=== PATIENT | male | born 1945 | race Caucasian/White ===

== ENCOUNTER → 2019-09-26 | Outpatient (CLI) | payer OTHER ==
--- NOTE | 2019-09-26 12:28 | Diagnostic Imaging Report ---
PROCEDURE: CT abdomen and pelvis without contrast. TECHNIQUE: Multiple contiguous axial images were obtained through the abdomen and pelvis without the use of intravenous contrast. Auto Exposure Controls were utilized during the CT exam to meet ALARA standards for radiation dose reduction. INDICATION: Follow-up status post previous IVC filter placement. COMPARISON: None. FINDINGS: Included portions of lung bases are clear. There is advanced calcified coronary atherosclerosis. CT abdomen: Indwelling IVC filter is identified and is in appropriate position. The superior tip of the IVC filter terminates at the lower level of the confluence of the IVC and renal veins. There is no abnormal tilt of the filter. The metallic anchors extend approximately 2 mm past the wall of the IVC into the pericaval fat. There is however no extension into other surrounding critical organs. Evaluation for thrombus within the IVC is not possible given lack of injected contrast. Small gallstones are noted. There is no appreciable gallbladder wall thickening or pericholecystic free fluid on this exam. The kidneys, adrenal glands, spleen, pancreas, and liver have an unremarkable noncontrast CT appearance. Small bowel loops are nondistended. Normal appendix is identified. Colonic diverticulosis is noted. There is no loculated fluid collection, free fluid, nor free air within the abdomen. There is mild abnormal stranding of the central mesenteric fat. No abnormal mesenteric or retroperitoneal lymph nodes are identified. Moderate scattered calcified aortic and arterial atherosclerosis is present. Osseous structures show no acute abnormalities. CT pelvis: Urinary bladder is unopacified. No calculi are seen within urinary bladder. There is no loculated fluid collection, free fluid, nor free air within the pelvis. No abnormal lymph nodes are identified. Osseous structures show no acute abnormalities. IMPRESSION: 1. Indwelling IVC filter is identified in appropriate position. 2. Cholelithiasis, but no CT evidence of acute cholecystitis. 3. Chronic diverticulosis, but no CT evidence of acute diverticulitis. 4. Nonspecific stranding of the central mesenteric fat. 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 Dictated by: Dictated on workstation # [id number]
== END ==
LOC: RAD FS 11:20
DX: Z45.2 Encounter for adjustment and management of vascular access device (principal)
CPT/HCPCS: 74176